=== PATIENT | female | born 1940 | race Caucasian/White ===

== ENCOUNTER → 2018-04-06 | Outpatient (CLI) | payer MEDICARE, OTHER ==
[2014-01-02 00:17] VITALS: BP 123/59
[~2018-04-06] MED LIST: ALEN70TA5 PO; ASPI-482 PO; CALC500T30 PO; LEVO50TA5 PO; MESA1.2T PO; METO-239 PO; OMEG300C PO; SIMV20TA3 PO
--- NOTE | 2018-04-06 10:59 | KCIC ---
EXAM: Dual energy x-ray absorptiometry (DEXA). HISTORY: Postmenopausal female presents for osteoporosis screening. COMPARISON: None. TECHNIQUE: Dual energy x-ray absorptiometry of the lumbar spine and right hip was performed. Calculation of bone mineral density based on standard deviations above or below the expected young adult normal value (T-score) was completed. FINDINGS: The average bone mineral density in the 1st through 4th lumbar vertebrae is 0.929 g/cmxcm, corresponding with a T-score of -1.1. The average total bone mineral density in the right hip is 0.826 g/cmxcm, corresponding with a T-score of -1.0. IMPRESSION: Osteopenia measured at the lumbar spine and borderline osteopenia measured at the right hip. Note: Definitions established by the World Health Organization: 1. Normal: T-score is -1.0 or above. 2. Osteopenia: T-score is between -1.0 and -2.5 . 3. Osteoporosis: T-score is -2.5 or below. Electronically signed by: Sylwia Navarrete MD (04/06/2018 10:56 AM) [facility]
--- NOTE | 2018-04-06 17:17 | KCIC ---
Bilateral digital screening mammograms with 3-D tomosynthesis: Reason for examination: Routine screening. No previous examinations available for comparison. New baseline. Bilateral mammograms in CC and oblique projections were obtained with 2-D imaging and 3-D tomosynthesis imaging on a Siemens Inspiration unit and reviewed on the workstation. Interpretation was made with the benefit of CAD. The skin and nipples show no abnormalities. No abnormal axillary lymph nodes are seen. The breast parenchyma shows scattered fatty and fibroglandular density. (Breast density: Category B.) There are no dominant masses, suspicious calcifications or architectural distortion. Impression: No evidence of malignancy. Recommend routine screening. BI-RAD Category 1: Negative. "Our facility is accredited by the [employer] Mammography Program." This patient's information has been entered into a reminder system for the patient to be notified with the results of her examination and a target date for the next mammogram. Electronically signed by: Lora Villa MD (04/06/2018 5:14 PM) [id number]
== END | disposition home or self-care (01) ==
LOC: KCIC DEXA 10:17
PROVIDERS: ATTEND Family Medicine
DX: Z12.31 Encounter for screening mammogram for malignant neoplasm of breast (principal); M85.89 Other specified disorders of bone density and structure, multiple sites
CPT/HCPCS: 77063; 77067; 77080

== ENCOUNTER 2018-06-18 10:35 | Emergency (ER) | payer MEDICARE, OTHER ==
[~2018-06-18] VITALS: Ht 154.9 cm; Wt 49.9 kg
[~2018-06-18 10:35] MED LIST changes: -ALEN70TA5 PO; +ALEN70TA6 PO; +LIALDA1.2 GM PO; -MESA1.2T PO
[2018-06-18] MEDS ORDERED: HYDROcodone/APAP 5/325MG 1 TAB TABLET ONE (11:21)
[2018-06-18] MEDS ORDERED: HYDROcodone/APAP 5/325MG 1 TAB TABLET PO ONE (11:30)
--- NOTE | 2018-06-18 11:30 | RAD ---
CT head without contrast PQRS statement: CT scans at this facility use dose reduction including either automated exposure control, iterative reconstructions, and /or weight based radiation dosing via mA and kV modification when appropriate to reduce radiation dose to as low as reasonably achievable. HISTORY: Fall. TECHNIQUE: [address] imaging skull base to vertex. FINDINGS: No intracranial hemorrhage, mass, hydrocephalus, extra-axial fluid collections or infarction. No acute ischemic changes. The imaged orbits, mastoids, paranasal sinuses and bones are unremarkable. IMPRESSION: No acute intracranial CT abnormality. Electronically signed by: Glen Martins MD (06/18/2018 11:25 AM) [facility]
--- NOTE | 2018-06-18 11:49 | RAD ---
Indication: Fall. Right rib pain TECHNIQUE: 3 views of the right ribs COMPARISON: None FINDINGS: Significant loss of left lung volume is seen with mediastinal shift to the left. Right lung is clear. Opacification is seen of the left lung apex and left lower lung zone with silhouetting of the cardiac border and left hemidiaphragm. No pneumothorax. No right rib fractures. IMPRESSION: 1. Loss of left lung volume with mediastinal shift to the left. Correlate with prior lobectomy. 2. Opacification of the left lung apex may be secondary to pneumonia, atelectasis or post surgical changes. 3. Opacification of the left lower lung zone may be secondary to pleural effusion, atelectasis, pneumonia or altered anatomy from the lungs surgery. INDICATION: Fall TECHNIQUE: 3 views of the thoracic spine COMPARISON: None FINDINGS: There is very subtle S-shaped scoliosis of thoracolumbar spine. No compression deformity. IMPRESSION: No acute findings in thoracic spine. Electronically signed by: Rakesh Ramos DO (06/18/2018 11:44 AM) [facility]
[2018-06-18 12:30] VITALS: BP 133/62
[2018-06-18] MEDS ORDERED: HYDR-3164 PO (12:35)
--- NOTE | 2018-06-18 12:35 | PHYS DOC ---
Past Medical History Past Medical History: CAD, High Cholesterol, Heart Disease, Hypothyroid, UTI, Other Additional Past Medical Histor: c-diff, lung dz unknown, colitis Past Surgical History: Hysterectomy, Tonsillectomy, Other Additional Past Surgical Histo: pneumonectomy, adnoidectomy, bx of breast, ankle fx Alcohol Use: None Drug Use: None Adult General Chief Complaint Chief Complaint: MECHANICAL FALL HPI HPI Patient is a 78-year-old female who presents with complaint of right-sided posterior rib pain after slipping and falling on ice this morning. Patient had been outside taking the trash out when she slipped and fell. She states that she hit her head on the ice as well but had no loss of consciousness. She does admit to a very mild headache that she rates at a 2 out of 10. She is on blood thinner. Patient states that her greatest amount of pain is in her right posterior rib region around T8-T10 region. She denies any chest pain, shortness of breath, fever, nausea or vomiting. She does indicate that pain is worsened with deep breathing. She rates that pain at a 7 out of 10. Review of Systems Review of Systems Constitutional: Denies fever or chills [] Respiratory: Denies cough or shortness of breath [] Cardiovascular: No additional information not addressed in HPI [] GI: Denies abdominal pain, nausea, vomiting or diarrhea [] Musculoskeletal: Admire of midthoracic back pain around ribs [] Integument: Denies rash or skin lesions [] Neurologic: Complains of mild headache without focal weakness or sensory changes [] All other systems were reviewed and found to be within normal limits, except as documented in this note. Current Medications Current Medications Current Medications Medications (Trade) Dose Ordered Sig/Federico Start Time Stop Time Status Last Admin Dose Admin Acetaminophen/ Hydrocodone Bitart (Lortab 5/325) 1 tab STK-MED ONCE 06/18/18 11:21 06/18/18 11:23 DC Allergies Allergies Allergies Coded Allergies Type Severity Reaction Last Updated Verified No Known Drug Allergies 05/25/13 No Physical Exam Physical Exam Constitutional: Well developed, well nourished, no acute distress, non-toxic appearance. [] HENT: Normocephalic, atraumatic, bilateral external ears normal, oropharynx moist, no oral exudates, nose normal. [] Eyes: PERRLA, EOMI, conjunctiva normal, no discharge. [] Neck: Normal range of motion, no tenderness, supple. [] Cardiovascular: Regular rate and rhythm[] Lungs & Thorax: Bilateral breath sounds clear to auscultation [] Abdomen: Bowel sounds normal, soft, no tenderness. [] Skin: Warm, dry, no erythema, no rash. [] Back: There is tenderness to palpation around the rib angles of 8 through 10th ribs on the right. [] Extremities: No tenderness, no cyanosis, no clubbing, ROM intact. [] Neurologic: Awake and alert, no focal deficits noted. [] Current Patient Data Vital Signs Vital Signs Date Time Temp Pulse Resp B/P (MAP) Pulse Ox O2 Delivery O2 Flow Rate FiO2 06/18/18 12:30 76 98 06/18/18 10:48 98.7 18 139/63 (88) Room Air 98.7 EKG EKG [] Radiology/Procedures Radiology/Procedures [] Impressions: CT head without contrast PQRS statement: CT scans at this facility use dose reduction including either automated exposure control, iterative reconstructions, and /or weight based radiation dosing via mA and kV modification when appropriate to reduce radiation dose to as low as reasonably achievable. HISTORY: Fall. TECHNIQUE: [address] imaging skull base to vertex. FINDINGS: No intracranial hemorrhage, mass, hydrocephalus, extra-axial fluid collections or infarction. No acute ischemic changes. The imaged orbits, mastoids, paranasal sinuses and bones are unremarkable. IMPRESSION: No acute intracranial CT abnormality. Electronically signed by: Glen Mratins MD (06/18/2018 11:25 AM) X-rays of the right ribs as well as thoracic spine demonstrate no acute bony abnormalities. Course & Med Decision Making Course & Med Decision Making Pertinent Labs and Imaging studies reviewed. (See chart for details) [] Dragon Disclaimer Dragon Disclaimer This electronic medical record was generated, in whole or in part, using a voice recognition dictation system. Departure Departure Impression: Primary Impression: Contusion of rib on right side Disposition: HOME, SELF-CARE Condition: STABLE Referrals: LISETH ROCK (PCP) Patient Instructions: Rib Contusion Scripts Hydrocodone/Apap 5-325 (NORCO 5-325 TABLET) 1 Each Tablet 1 EACH PO PRN Q6HRS PRN for PAIN, #12 as needed for pain Prov: RM VELIZ Jr. DO 06/18/18 Problem Qualifiers Primary Impression: Contusion of rib on right side Encounter type: initial encounter Qualified Codes: S20.211A - Contusion of right front wall of thorax, initial encounter RM VELIZ Jr. DO Jun 18, 2018 12:35
== END 2018-06-18 13:00 | disposition home or self-care (01) ==
LOC: ER 10:35
DX: S20.211A Contusion of right front wall of thorax, initial encounter (principal); R51 Headache; R07.1 Chest pain on breathing; E78.00 Pure hypercholesterolemia, unspecified; E03.9 Hypothyroidism, unspecified; I25.10 Atherosclerotic heart disease of native coronary artery without angina pectoris; Z86.79 Personal history of other diseases of the circulatory system; W00.2XXA Other fall from one level to another due to ice and snow, initial encounter; Y93.89 Activity, other specified; Y92.89 Other specified places as the place of occurrence of the external cause; Y99.8 Other external cause status
CPT/HCPCS: 70450; 71101; 72072; 99284-25

== ENCOUNTER → 2019-05-18 | Outpatient (CLI) | payer MEDICARE ==
[2019-04-12 11:00] VITALS: BP 107/59
[~2019-05-18] MED LIST changes: +APIX5TAB PO; +CYCL10TA2 PO; +FLEC50TA PO; +HYDR-3164 PO; +LIDO700A21 TD; +MIRA25TA PO; +ONDA4TAB7 PO; +OXYC1TAB15 PO; +SIMV20TA18 PO; -SIMV20TA3 PO
--- NOTE | 2019-05-18 14:48 | KCIC ---
CHEST PA LATERAL History: Previous rib fracture and hemothorax, previous left lung removal Comparison: April 11, 2019 Findings: 2 views of the chest are submitted. There again has been left pneumonectomy. There is atherosclerotic calcification near aortic arch. There is improved aeration at the right lung base, no significant right pleural fluid or infiltrate on this exam. There is no right pneumothorax. Cardiac silhouette is poorly delineated again due to deviation to the left hemithorax. Impression: 1. There is no significant residual right pleural fluid or pneumothorax. Electronically signed by: Chase Holguin MD (05/18/2019 2:46 PM) [facility]
== END | disposition home or self-care (01) ==
LOC: KCIC 11:14
PROVIDERS: ATTEND Family Medicine
DX: I70.0 Atherosclerosis of aorta (principal); J94.2 Hemothorax
CPT/HCPCS: 71046

== ENCOUNTER 2019-11-10 16:57 | Emergency (ER) | payer MEDICARE ==
[~2019-11-10] VITALS: Ht 152.4 cm; Wt 45.5 kg
--- NOTE | 2019-11-10 18:48 | RAD ---
Exam: Right shoulder 3 views INDICATION: Injury TECHNIQUE: Frontal view of the right shoulder with internal and external rotation and transscapular Y views. Comparisons: None FINDINGS: Mildly displaced fracture through the distal right clavicle. No other fractures are identified. Joint spaces are well-maintained. Soft tissues are unremarkable. IMPRESSION: Mildly displaced fracture to the distal right clavicle. Electronically signed by: Radha Lopez MD (11/10/2019 6:44 PM) [id number]
--- NOTE | 2019-11-10 19:03 | PHYS DOC ---
Past Medical History Past Medical History: CAD, High Cholesterol, Heart Disease, Hypothyroid, UTI, Other Additional Past Medical Histor: c-diff, lung dz unknown, colitis Past Surgical History: Hysterectomy, Tonsillectomy, Other Additional Past Surgical Histo: pneumonectomy, adnoidectomy, bx of breast, ankle fx Smoking Status: Former Smoker Alcohol Use: Occasionally Drug Use: None General Adult EDM: Chief Complaint: MECHANICAL FALL HPI: HPI: Patient is a 79 year old female presents to the ED with a chief complaint of right shoulder pain. Patient states that she felt dizzy at home while answering a phone and she tried to catch herself but hit the floor on her right shoulder. Patient denies hitting her head or loss of consciousness. Patient states that her shoulder hurts when she moves it. When she states still there is no pain. Patient states that she does not want any other work-up done and that she will follow-up with her PCP and industrial therapist for any further evaluation. Daughter is in the room for this conversation. Review of Systems: Review of Systems: Constitutional: Denies fever or chills. [] Eyes: Denies change in visual acuity. [] HENT: Denies nasal congestion or sore throat. [] Respiratory: Denies cough or shortness of breath. [] Cardiovascular: Denies chest pain or edema. [] GI: Denies abdominal pain, nausea, vomiting, bloody stools or diarrhea. [] : Denies dysuria. [] Musculoskeletal: Complains of right shoulder pain Neurologic: Denies headache, focal weakness or sensory changes. [] Heart Score: Risk Factors: Risk Factors: DM, Current or recent (<one month) smoker, HTN, HLP, family history of CAD, obesity. Risk Scores: Score 0 - 3: 2.5% MACE over next 6 weeks - Discharge Home Score 4 - 6: 20.3% MACE over next 6 weeks - Admit for Clinical Observation Score 7 - 10: 72.7% MACE over next 6 weeks - Early Invasive Strategies Allergies: Allergies: Allergies Coded Allergies Type Severity Reaction Last Updated Verified No Known Drug Allergies 05/25/13 No Physical Exam: PE: Constitutional: Well developed, well nourished, no acute distress, non-toxic appearance. [] HENT: Normocephalic, atraumatic Eyes: EOMI Neck: Normal range of motion, Supple Respiratory: No respiratory distress Extremities: Tenderness to the right shoulder on movement. Neurologic: Alert and oriented X 3 Current Patient Data: Vital Signs: Vital Signs Date Time Temp Pulse Resp B/P (MAP) Pulse Ox O2 Delivery O2 Flow Rate FiO2 11/10/19 17:05 98.2 74 15 148/64 (92) 100 Room Air 98.2 EKG: EKG: [] Radiology/Procedures: Radiology/Procedures: [] Impression: SHOULDER XRAY IMPRESSION: Mildly displaced fracture to the distal right clavicle. Course & Med Decision Making: Course & Med Decision Making Pertinent Imaging studies reviewed. (See chart for details) Right shoulder x-ray shows IMPRESSION: Mildly displaced fracture to the distal right clavicle. Will place patient in a sling. Patient to follow-up with Dr. Fajardo as an outpatient. Discussed results and plan of care with patient. Patient is instructed to follow up with PCP in one to 2 days. Appropriate discharge instructions given to patient to return to the ED or to seek immediate medical evaluation. Patient is instructed to return to the ED if symptoms worsen or if any concerns. Dragon Disclaimer: Dragon Disclaimer: This electronic medical record was generated, in whole or in part, using a voice recognition dictation system. Departure Departure Impression: Primary Impression: Clavicle fracture Disposition: HOME, SELF-CARE Condition: STABLE Referrals: LISETH ROCK (PCP) ARIADNE FAJARDO MD PLEASE CALL ON NOVEMBER 11 FOR APPOINTMENT Patient Instructions: Clavicle Fracture Additional Instructions: Discussed results and plan of care with patient. Patient is instructed to follow up with PCP in one to 2 days. Appropriate discharge instructions given to patient to return to the ED or to seek immediate medical evaluation. Patient is instructed to return to the ED if symptoms worsen or if any concerns. Justicifation of Admission Dx: Justifications for Admission: Justification of Admission Dx: GERALDO Marquez DO Nov 10, 2019 19:03
[2019-11-10 19:18] VITALS: BP 124/69
== END 2019-11-10 19:48 | disposition home or self-care (01) ==
LOC: ER 16:57
DX: S42.031A Displaced fracture of lateral end of right clavicle, initial encounter for closed fracture (principal); R42 Dizziness and giddiness; E78.00 Pure hypercholesterolemia, unspecified; E03.9 Hypothyroidism, unspecified; I25.10 Atherosclerotic heart disease of native coronary artery without angina pectoris; Z87.891 Personal history of nicotine dependence; W22.8XXA Striking against or struck by other objects, initial encounter; Y93.89 Activity, other specified; Y92.89 Other specified places as the place of occurrence of the external cause; Y99.8 Other external cause status
CPT/HCPCS: 73030; 99285-25; A4565